=== PATIENT | male | born 1970 | race Hispanic/Latino ===

== ENCOUNTER 2017-09-26 07:34 | Day surgery (SDC) | payer OTHER ==
[2017-09-25 15:32] VITALS: BP 153/96
[2017-09-25 15:37] LABS: BASOPHILS % (AUTO) 0.8 % (0.0-5.0); EOSINOPHILS % (AUTO) 0.9 % (0.0-8.0); HEMATOCRIT 46.5 % (42-54); LYMPHOCYTES % (AUTO) 29.3 % (21.0-51.0); MEAN CORPUSCULAR HEMOGLOBIN 31.6 pg (27.0-33.0); MEAN CORPUSCULAR HGB CONC 34.4 g/dL (32.0-36.0); MEAN CORPUSCULAR VOLUME 91.9 fL (79-99); MONOCYTES % (AUTO) 9.8 % (3.0-13.0); NEUTROPHILS % (AUTO) 59.2 % (40.0-77.0); PLATELET COUNT (AUTO) 346 K/uL (130-400); RED BLOOD CELL COUNT(AUTO) 5.06 MIL/uL (4.50-6.20); RED CELL DISTRIBUTION WIDTH 12.5 % (11.0-15.5); WHITE BLOOD COUNT (AUTO) 8.5 K/uL (4.8-10.8)
[2017-09-25 15:43] LABS: CREATININE 1.3 mg/dL (0.5-1.5); POTASSIUM 4.8 mmol/L (3.5-5.1)
[~2017-09-26] VITALS: Ht 167.6 cm; Wt 83.6 kg
[2017-09-26] VITALS (15 sets, daily range): BP systolic 98–134; BP diastolic 58–78
[~2017-09-26 07:34] MED LIST: DULO20CA17 PO; LISI-613 PO; TRAZ-147 PO; WATER FOR INJECTION,STERILE 20 ML VIAL IJ SCH
[2017-09-26] MEDS: CEFAZOLIN SODIUM 1 GM VIAL IVP SCH ×2 (09:00→09:32)
[2017-09-26] MEDS ORDERED: CEFAZOLIN SODIUM 1 GM VIAL ONE (09:04)
[2017-09-26] MEDS ORDERED: LACTATED RINGERS 1000ML 1,000 ML IV ONE (09:04)
[2017-09-26] MEDS ORDERED: EPINEPHRINE 1 MG/ML 30ML VIAL IJ ONE (09:33)
[2017-09-26] MEDS ORDERED: SUCCINYLCHOLINE 200MG/10ML SYR ONE (09:34)
[2017-09-26] MEDS ORDERED: LIDOCAINE PF 2% 5ML ABBOJECT ONE (09:34)
[2017-09-26] MEDS ORDERED: ONDANSETRON HCL 4 MG/2 ML VIAL ONE (09:34)
[2017-09-26] MEDS ORDERED: GLYCOPYRROLATE 0.2 MG/ML 5 ML VIAL ONE (09:34)
[2017-09-26] MEDS ORDERED: NEOSTIGMINE METHYLSULFATE 1MG/ML IV ONE (09:34)
[2017-09-26] MEDS ORDERED: DEXAMETHASONE SOD PHOSPHATE 10MG/ML 1ML VIAL ONE (09:34)
[2017-09-26] MEDS ORDERED: FENTANYL CITRATE PF 50 MCG/1 ML 2ML VIAL ONE (09:35)
[2017-09-26] MEDS ORDERED: PROPOFOL 10 MG/ML 20ML VIAL IV ONE (09:35)
[2017-09-26] MEDS ORDERED: MIDAZOLAM HCL 1 MG/ML 2ML VIAL ONE (09:35)
[2017-09-26] MEDS ORDERED: KETOROLAC TROMETHAMINE 30MG/ML ONE (12:44)
== END 2017-09-26 14:45 | disposition home or self-care (01) ==
LOC: DAH 07:34
PROVIDERS: ATTEND Orthopaedic Surgery
DX: M75.102 Unspecified rotator cuff tear or rupture of left shoulder, not specified as traumatic (principal); E66.9 Obesity, unspecified; M75.42 Impingement syndrome of left shoulder; I10 Essential (primary) hypertension; Z98.890 Other specified postprocedural states; Z82.49 Family history of ischemic heart disease and other diseases of the circulatory system; Z68.30 Body mass index [BMI] 30.0-30.9, adult
CPT/HCPCS: 29824; 36415; 80048; 85025; A4565; A4649 ×3; A4930; A6204; G0168; J0171; J0330; J0690; J1100; J1885; J2001; J2250; J2405; J2704; J2710; J3010; J3490; J7030; J7120

== ENCOUNTER → 2018-01-01 | Outpatient (CLI) | payer OTHER ==
[~2018-01-01] MED LIST changes: -TRAZ-147 PO; +TRAZ-187 PO; -WATER FOR INJECTION,STERILE 20 ML VIAL IJ SCH
== END | disposition home or self-care (01) ==
LOC: RAH 12:34
PROVIDERS: ATTEND Nurse Practitioner Family
DX: M47.26 Other spondylosis with radiculopathy, lumbar region (principal); D18.09 Hemangioma of other sites
CPT/HCPCS: 72148

== ENCOUNTER → 2020-11-14 | Outpatient (CLI) | payer OTHER ==
[~2020-11-14] MED LIST changes: +ALBUTEROL SULFATE 0.083% 2.5 MG/3 ML INH IH ONE; -DULO20CA17 PO; +DULO20CA18 PO; -LISI-613 PO; +LISI20TA24 PO
== END | disposition home or self-care (01) ==
LOC: RESP 10:43
PROVIDERS: ATTEND Orthopaedic Surgery
DX: J45.998 Other asthma (principal)
CPT/HCPCS: 94060